=== PATIENT | female | born 1935 ===

== ENCOUNTER 2018-08-28 10:19 | Outpatient (CLI) | payer OTHER | END 2018-08-28 10:26 | disposition home or self-care (01) | LOC: SONOGRAMA 10:19 | DX: E04.1 Nontoxic single thyroid nodule (principal) ==

== ENCOUNTER 2018-12-07 08:17 | Outpatient (CLI) | payer OTHER | END 2018-12-07 10:55 | disposition home or self-care (01) | LOC: SONOGRAMA 08:17 | DX: E04.2 Nontoxic multinodular goiter (principal) ==